=== PATIENT | male | born 1970 | race Two or more races ===

== ENCOUNTER 2017-12-03 18:34 | Emergency (ER) | END 2017-12-03 23:13 | disposition home or self-care (01) ==

== ENCOUNTER 2017-12-19 23:52 | Emergency (ER) | END 2017-12-20 05:48 | disposition home or self-care (01) ==

== ENCOUNTER 2018-02-23 05:49 | Day surgery (SDC) | END 2018-02-23 10:42 | disposition home or self-care (01) ==